=== PATIENT | female | born 1980 | race African-American/Black ===

== ENCOUNTER 2017-09-10 01:23 | Emergency (ER) | payer MEDICAID, OTHER ==
[~2017-09-10] VITALS: Ht 170.2 cm; Wt 90.0 kg
[~2017-09-10 01:23] MED LIST: DOXY10TA PO; ZOFR4TAB3 PO; ZOFR4TAB3 SL
[2017-09-10 01:28] VITALS: BP 131/93; PULSE 88; RESP 18; TEMP 97.8; O2SAT 100
[2017-09-10 01:35] VITALS: BP 116/78; PULSE 89; RESP 16; O2SAT 98
[2017-09-10] MEDS ORDERED: ONDANSETRON HCL 4 MG/2 ML VIAL IV ONE (02:00)
[2017-09-10] MEDS ORDERED: SODIUM CHLOR 0.9% 1000 ML INJ 1,000 ML IV ONE (02:00)
[2017-09-10 02:22] LABS: ALBUMIN 3.8 GM/DL (3.4-5.0); ALKALINE PHOSPHATASE 51 U/L (45-117); ALT (GPT) 16 U/L (10-53); AST (GOT) 21 U/L (15-37); BICARBONATE 29.2 MEQ/L (21.0-32.0); BLOOD UREA NITROGEN 11 MG/DL (7-18); CALCIUM 8.7 MG/DL (8.5-10.1); CHLORIDE 104 MEQ/L (98-107); CREATININE 0.75 MG/DL (0.50-1.00); GLOMERULAR FILTRATION RATE 106 ML/MIN (>89); GLUCOSE,RANDOM 89 MG/DL (74-106); SODIUM (NA) 138 MEQ/L (136-145); TOTAL BILIRUBIN ADULT 0.6 MG/DL (0.2-1.0); TOTAL PROTEIN 8.2 GM/DL (6.4-8.2)
--- NOTE | 2017-09-10 02:23 | PD ---
HPI Chief Complaint: GI Complaint Time Seen by Provider: 01:30 Travel History International Travel<30 days: No Contact w/Intl Traveler<30days: No Traveled to known affect area: No History of Present Illness HPI The patient is a 37 year old female who presents to the [facility] emergency department with a history of abdominal pain and vomiting that began around 12:45 AM. The patient reports that she is vomited 3 times. She reports that her last meal was at 2 PM and consisted of Burger [employer]m. She denies having any diarrhea. She cannot recall when she last moved her bowels, however she reports that it was a normal bowel movement. She denies having any constipation. She denies having any known fevers. She reports that her abdominal pain is in the midepigastric area. She reports that is an aching sensation. She reports that her last menstrual cycle was August 29, 2017. On review of systems otherwise, the patient denies having any cough, congestion , neck pain, chest pain, shortness of breath, urinary symptoms, or neurologic symptoms. [facility]LY [facility] Past Medical History Narrative Medical The patient's past medical history is significant for asthma. Hx Anticoagulant Therapy: No Anemia: Yes Cardiovascular Problems: No Chemotherapy: No Cerebrovascular Accident: No Diabetes: No Diminished Hearing: No Respiratory: Yes (ASTHMA) Immunizations Current: Yes ?: Not LMP: 08/29/17 : 6 Para: 2 Past Surgical History Narrative Surgical The patient's past surgical history is significant for fibroid removal from her uterus, bilateral tubal ligation. Section: Yes ( x2 ) Gynecologic Surgery: Yes (fibroids removed) Hysterectomy: No Social History Alcohol Use: No Tobacco Use: No Substance Use: No Allergies-Medications (Allergen,Severity, Reaction): Coded Allergies: No Known Allergies (Unverified Adverse Reaction, Unknown, 09/10/17) Reported Meds & Prescriptions Reported Meds & Active Scripts Active Zofran Odt (Ondansetron Odt) 4 Mg Tab 4 Mg SL Q6HR PRN Review of Systems Except as stated in HPI: all other systems reviewed are Neg General / Constitutional: No: Fever Eyes: No: Visual changes HENT: Positive: Headaches, No: Rhinorrhea, Congestion, Neck Stiffness, Neck Pain Cardiovascular: No: Chest Pain or Discomfort Respiratory: No: Shortness of Breath Gastrointestinal: Positive: Nausea, Vomiting, Abdominal Pain, No: Diarrhea, Changes in Bowel Habits Genitourinary: No: Dysuria Musculoskeletal: No: Pain Skin: No Rash Neurologic: Positive: Headache, No: Weakness, Focal Abnormalities, Change in Mentation, Slurred Speech, Sensory Disturbance Psychiatric: No: Depression Endocrine: No: Polydipsia Hematologic/Lymphatic: No: Easy Bruising Physical Exam Narrative General: The patient is a well-developed well-nourished female in no acute distress. Head and Neck exam: Head is normocephalic atraumatic. Eyes: EOMI, pupils are equal round and reactive to light. Nose: Midline septum with pink mucous membranes Mouth: Dentition unremarkable. Moist mucus membranes. Posterior oropharynx is not erythematous. No tonsillar hypertrophy. Uvula midline. Airway patent. Neck: No palpable lymphadenopathy. No nuchal rigidity. No thyromegaly. Cardiovascular: Regular rate and rhythm without murmurs, gallops, or rubs. Lungs: Clear to auscultation bilaterally. No wheezes, rhonchi, or rales. Abdomen: Soft, with minimal discomfort in the midepigastric area on deep palpation, no other quadrant tenderness on palpation. Normal bowel sounds are audible. No tenderness on palpation of McBurney's point. No guarding, rebound, or rigidity. Negative Brown sign. Extremities: No clubbing, cyanosis, or edema. 2+ pulses in all 4 extremities. No calf tenderness on palpation. Back: No spinous process tenderness to palpation. No costovertebral angle tenderness to palpation. Neurologic Exam: Grossly nonfocal. Skin Exam: No rash noted. Intact skin that is warm and dry. Data Data Last Documented VS Vital Signs Date Time Temp Pulse Resp B/P (MAP) Pulse Ox O2 Delivery O2 Flow Rate FiO2 09/10/17 03:58 09/10/17 01:35 89 16 98 Room Air 09/10/17 01:28 97.8 Orders Orders Complete Blood Count With Diff (09/10/17 01:50) Comprehensive Metabolic Panel (09/10/17 01:50) Lipase (09/10/17 01:50) Urinalysis - C+S If Indicated (09/10/17 01:50) Iv Access Insert/Monitor (09/10/17 01:50) Ecg Monitoring (09/10/17 01:50) Oximetry (09/10/17 01:50) Ed Urine Pregnancytest Poc (09/10/17 01:50) Sodium Chlor 0.9% 1000 Ml Inj (Ns 1000 M (09/10/17 02:00) Ondansetron Inj (Zofran Inj) (09/10/17 02:00) Oral Rehydration (09/10/17 03:03) Ondansetron Inj (Zofran Inj) (09/10/17 03:15) Ed Discharge Order (09/10/17 03:49) Labs Laboratory Tests Test 09/10/17 01:50 09/10/17 02:45 Blood Urea Nitrogen 11 MG/DL Creatinine 0.75 MG/DL Random Glucose 89 MG/DL Total Protein 8.2 GM/DL Albumin 3.8 GM/DL Calcium Level 8.7 MG/DL Alkaline Phosphatase 51 U/L Aspartate Amino Transf (AST/SGOT) 21 U/L Alanine Aminotransferase (ALT/SGPT) 16 U/L Total Bilirubin 0.6 MG/DL Sodium Level 138 MEQ/L Potassium Level 3.8 MEQ/L Chloride Level 104 MEQ/L Carbon Dioxide Level 29.2 MEQ/L Anion Gap 5 MEQ/L Estimat Glomerular Filtration Rate 106 ML/MIN Lipase 148 U/L White Blood Count 6.1 TH/MM3 Red Blood Count 4.42 MIL/MM3 Hemoglobin 12.4 GM/DL Hematocrit 36.3 % Mean Corpuscular Volume 82.2 FL Mean Corpuscular Hemoglobin 28.1 PG Mean Corpuscular Hemoglobin Concent 34.2 % Red Cell Distribution Width 13.8 % Platelet Count 166 TH/MM3 Mean Platelet Volume 8.0 FL Neutrophils (%) (Auto) 69.7 % Lymphocytes (%) (Auto) 19.2 % Monocytes (%) (Auto) 6.3 % Eosinophils (%) (Auto) 3.0 % Basophils (%) (Auto) 1.8 % Neutrophils # (Auto) 4.3 TH/MM3 Lymphocytes # (Auto) 1.2 TH/MM3 Monocytes # (Auto) 0.4 TH/MM3 Eosinophils # (Auto) 0.2 TH/MM3 Basophils # (Auto) 0.1 TH/MM3 CBC Comment DIFF FINAL Differential Comment Urine Color YELLOW Urine Turbidity CLEAR Urine pH 7.0 Urine Specific [place] 1.020 Urine Protein NEG mg/dL Urine Glucose (UA) NEG mg/dL Urine Ketones NEG mg/dL Urine Occult Blood NEG Urine Nitrite NEG Urine Bilirubin NEG Urine Urobilinogen LESS THAN 2.0 MG/DL Urine Leukocyte Esterase TRACE Urine RBC 1 /hpf Urine WBC 2 /hpf Urine Squamous Epithelial Cells 8 /hpf Urine Bacteria RARE /hpf Urine Hyaline Casts 1 /lpf Urine Mucus MANY /lpf Microscopic Urinalysis Comment CULT NOT INDICATED MDM Medical Decision Making Medical Screen Exam Complete: Yes Emergency Medical Condition: Yes Medical Record Reviewed: Yes Differential Diagnosis Biliary colic, versus acute cholecystitis, versus viral versus bacterial gastroenteritis, versus dehydration, versus electrolyte derangements, versus pancreatitis Narrative Course During the course of the patient's emergency department visit, the patient's history, examination, and differential diagnosis were reviewed with the patient. The patient was placed on a copy messenger with oximetry and frequent blood pressure monitoring. The patient had IV access obtained and blood work sent for analysis. The patient was initially provided normal saline 1 L IV fluid bolus, Zofran 4 mg IV. The patient's laboratory studies were reviewed and remarkable for CBC that is within normal limits, CMP is remarkable for within normal limits, lipase 148, urinalysis shows trace leukocyte esterase, 2 WBCs, 1 RBCs, many mucus, culture not indicated. The patient was started on oral challenge. The patient tolerated p.o. hydration well. The patient's symptoms improved. The patient will be discharged home with a prescription for Zofran. The patient is resting comfortably and feels better, is alert and in no distress. The patient's results and examination findings were discussed with the patient. The repeat examination is unremarkable and benign. The history, exam, diagnostic testing, and current condition do not suggest any significant pathology to warrant further testing, continued ED treatment, admission, or surgical evaluation at this point. The vital signs have been stable. The patient does not have uncontrollable pain, intractable vomiting, or other significant symptoms. The patient's condition is stable and appropriate for discharge. The patient will pursue further outpatient evaluation with a primary care physician or other designated or consulting physician as indicated in the discharge instructions. The patient expressed understanding and was agreeable with this plan. Diagnosis Primary Impression: Abdominal pain Qualified Codes: R10.13 - Epigastric pain Additional Impression: Vomiting Qualified Codes: R11.2 - Nausea with vomiting, unspecified Referrals: [facility] 3 days Primary Care Physician 3 days Med/Other Pt SpecificInfo: Prescription(s) given Scripts Ondansetron Odt (Zofran Odt) 4 Mg Tab 4 MG SL Q6HR Y for Nausea/Vomiting, #7 TAB 0 Refills Prov: Cristiana Lara MD 09/10/17 Disposition: 01 DISCHARGE HOME Condition: Stable Cristiana Lara MD Sep 10, 2017 02:23
[2017-09-10 03:01] LABS: AUTOMATED NEUTROPHIL # 4.3 TH/MM3 (1.8-7.7); BACTERIA, URINE RARE /hpf; BASOPHIL # 0.1 TH/MM3 (0-0.2); BASOPHIL % 1.8 % (0.0-2.0); BILIRUBIN, URINE NEG (NEG); BLOOD, URINE NEG (NEG); EOSINOPHIL # 0.2 TH/MM3 (0-0.4); GLUCOSE,URINE NEG (NEG); HEMATOCRIT 36.3 % (35.0-46.0); HEMOGLOBIN 12.4 GM/DL (11.6-15.3); HYALINE CAST, URINE 1 /lpf (RARE); KETONE, URINE NEG (NEG); LYMPH % 19.2 % (9.0-44.0); LYMPHOCYTE # 1.2 TH/MM3 (1.0-4.8); MEAN CELL VOLUME 82.2 FL (80.0-100.0); MEAN CORPUSCULAR HEMOGLOBIN 28.1 PG (27.0-34.0); MEAN CORPUSCULAR HGB CONC 34.2 % (32.0-36.0); MONO % 6.3 % (0.0-8.0); MONOCYTE # 0.4 TH/MM3 (0-0.9); MUCUS URINE MANY /lpf (OCC); NEUT % 69.7 % (16.0-70.0); NITRITE,URINE NEG (NEG); PLATELET COUNT 166 TH/MM3 (150-450); RED BLOOD COUNT 4.42 MIL/MM3 (4.00-5.30); RED CELL DISTRIBUTION WIDTH 13.8 % (11.6-17.2); SQUAMOUS EPITHELIAL CELL URINE 8 /hpf (0-5); URINE COLOR YELLOW (YELLW/STRAW); URINE LEUKOCYTE ESTERASE TRACE (NEG); WHITE BLOOD COUNT 6.1 TH/MM3 (4.0-11.0)
[2017-09-10] MEDS ORDERED: ONDANSETRON HCL 4 MG/2 ML VIAL IV PUSH ONE (03:15)
[2017-09-10] MEDS ORDERED: ZOFR4TAB3 SL (03:24)
== END 2017-09-10 04:03 | disposition home or self-care (01) ==
LOC: NEPE 01:23
DX: R10.13 Epigastric pain (principal); R11.2 Nausea with vomiting, unspecified
CPT/HCPCS: 80053; 81001; 83690; 84703; 85025; 96361; 96374; 96376; 99284; J2405; J7030